=== PATIENT | female | born 1995 | race Caucasian/White ===

== ENCOUNTER → 2025-01-27 08:08 | Outpatient (REF) | payer BC, SELFPAY ==
[2025-01-27 09:23] LABS: ALT (SGPT) 16 U/L (0-35); AST (SGOT) 20 U/L (14-36); Albumin 4.3 g/dl (3.5-5.0); Alkaline Phosphatase 43 U/L (38-126); Blood Urea Nitrogen 13 mg/dl (7-17); Calcium 9.5 mg/dl (8.4-10.2); Carbon Dioxide 31 mmol/L (22-30); Chloride 103 mmol/L (98-107); Glucose 176 mg/dl (70-99); HDL Cholesterol 90 mg/dl; LDL Cholesterol, Calculated 107 mg/dl; Potassium 4.5 mmol/L (3.5-5.1); Sodium 141 mmol/L (135-145); Total Cholesterol 208 mg/dl (50-199); Total Protein 6.7 g/dl (6.3-8.2); Triglyceride 58 mg/dl (10-149); Very Low Density Lipoprotein 11 mg/dl (0-30); eGFR > 60.00
[2025-01-27 09:44] LABS: Glycohemoglobin (HgbA1c) 6.2 % (4.0-5.6)
[2025-01-27 10:11] LABS: TSH 1.34 uIU/ml (0.47-4.68)
[2025-01-27 10:21] LABS: Microalbumin, Random Urine 6.7 mg/dl (0.6-1.7)
== END ==
LOC: REG 08:08
PROVIDERS: ATTENDING PHYSICIAN Internal Medicine Endocrinology, Diabetes & Metabolism; FAMILY PHYSICIAN Physician Assistant Medical
DX: E10.65 Type 1 diabetes mellitus with hyperglycemia (principal)
CPT/HCPCS: 36415; 80053; 80061; 82043; 82570; 83036; 84443

== ENCOUNTER → 2025-04-21 10:43 | Outpatient (REF) | payer BC, SELFPAY | LOC: RAD 10:43 | PROVIDERS: ATTENDING PHYSICIAN Physician Assistant Medical | DX: M79.644 Pain in right finger(s) (principal); M25.441 Effusion, right hand | CPT/HCPCS: 73130 ==